=== PATIENT | female | born 1945 | race Caucasian/White ===

== ENCOUNTER → 2019-07-24 14:04 | Outpatient (CLI) | payer MEDICARE, OTHER, SELFPAY ==
--- NOTE | 2019-07-24 | DI.RAD.S_ITS ---
PROCEDURE: XR CHEST 2V INDICATIONS: Asymptomatic menopausal Chest pain, unspecified TECHNIQUE: 2 views of the chest were acquired. COMPARISON: None. FINDINGS: Surgical changes and devices: None. Lungs and pleura: Lungs are clear. No pleural effusions or pneumothorax. Mediastinum: Mediastinal contours are normal. Heart size is normal. Bones and chest wall: No suspicious bony abnormalities. Soft tissues appear unremarkable. IMPRESSION: Normal for age, source of current chest pain symptoms is not seen. Dictated by: Sadi Shah M.D. on 07/24/2019 at 16:10 Approved by: Sadi Shah M.D. on 07/24/2019 at 16:10
--- NOTE | 2019-07-24 15:49 | PM.TREADMILL ---
Cardiac Stress Test Report Referral & Results Date Patient Seen: 07/24/19 Time Patient Seen: 15:50 Requesting provider: Jone Grider Indication: chest pain Rest ECG: sinus rhythm Procedure Note: Standard kaur protocol. Exercised 6:00, 6.1 METS. Max heart rate achieved 146 bpm. Good exercise capacity, ALEXA -13%; normal hemodynamic response to exercise; no chest pain or anginal symptoms. Resting ECG sinus rhythm with less than [address] depression in II, Avf, V4-V6. No ectopy Impression: Normal exercise nuclear stress test. Please note: Actual ECG tracings can be found in the PACS system.
--- NOTE | 2019-07-25 18:47 | DI.NM.S_ITS ---
DATE OF SERVICE: 07/24/2019 PROCEDURE: Exercise treadmill stress and rest myocardial perfusion imaging with gating to assess ejection fraction and regional wall motion. ORDERING PROVIDER: Dr. Jone Grider. INDICATIONS: The patient is a 74-year-old female with atypical chest discomfort. EXERCISE TREADMILL TESTING: The patient was able to exercise for a total of 5 minutes 58 seconds on a standard Long protocol suggesting very good exercise capacity with an ALEXA of -13%. She had a normal heart rate andblood pressure response, achieving a maximum heart rate of 146 bpm (101% of her predicted maximum). She had no chest discomfort. Her resting ECG is normal. She developed some subtle, nonspecific ST segment abnormalities at peak exercise that resolved promptly in recovery and are not indicative of ischemia. There were no arrhythmias seen. At 3 minutes 50 seconds of exercise at a heart rate of 132 bpm, 26.7 mCi of technetium-99m Myoview was injected and the patient was imaged 15 minutes later using a gated SPECT acquisition protocol. She returned the following day and was reinjected with an additional 25.5 mCi of technetium-99m Myoview and was imaged 30 minutes later, again, using a gated SPECT acquisition algorithm. FINDINGS: RAW DATA:: There is fairly good myocardial tracer uptake although there is some mild motion on the resting images. There is a mild breast attenuation artifact noted. Lung-heart ratio is normal at 0.38 with a normal TID ratio of 0.87. QUANTITATED GATED SPECT:: Post-stress ejection fraction is estimated at 86% without any focal wall motion abnormality. Resting ejection fraction is 82% with a resting end-diastolic volume of 67 mL. MYOCARDIAL PERFUSION IMAGING:: Post-stress supine images show a fairly normal myocardial perfusion pattern, supported by normal perfusion imaging in the prone position. The resting images show an identical perfusion pattern without any areas of improvement. CONCLUSION: 1. Normal myocardial perfusion study. 2. No evidence of myocardial ischemia or previous myocardial infarction. 3. Normal left ventricular systolic function without any regional wall motion abnormality. 4. Very good exercise capacity without angina or any concerning ECG abnormalities of ischemia. Lucrecia Hart - JUANITO/angela/glenna doc#: [id number]/job#: [id number] dd: 07/25/2019 16:37:00 dt: 07/25/2019 18:16:00 DICTATING MD/COPIES TO: Nate Willingham MD; Jone Grider M.D. COPIES MNE: ESSENCE;
== END ==
PROVIDERS: PCP Family Medicine; Visit Provider Family Medicine
DX: R07.89 Other chest pain (principal); M85.88 Other specified disorders of bone density and structure, other site; Z78.0 Asymptomatic menopausal state; Z90.722 Acquired absence of ovaries, bilateral; Z87.891 Personal history of nicotine dependence
CPT/HCPCS: 71046; 77080; 78452; 93017; A9502

== ENCOUNTER → 2019-11-14 13:20 | Outpatient (CLI) | payer MEDICARE, OTHER, SELFPAY ==
--- NOTE | 2019-11-14 | DI.MRI.S_ITS ---
PROCEDURE: MR HEAD/BRAIN WO/W CON INDICATIONS: PALATAL MYOCLONUS TECHNIQUE: Noncontrast axial T1 spin echo, axial T2 fast spin echo, sagittal and axial FLAIR, coronal T2 fast spin echo, axial gradient echo, axial diffusion and ADC through the brain. After the administration of contrast, axial and coronal T1 spin echo with fat saturation through the brain. COMPARISON: None. FINDINGS: Image quality: Excellent. CSF spaces: Basal cisterns are patent. No extra-axial fluid collections. Ventricles are normal in size and shape. Brain: No midline shift. No intracranial bleeds or masses. No abnormal intracranial enhancement. There is cerebral volume loss for age. There is periventricular white matter chronic small vessel ischemic change. The brainstem appears normal. Diffusion-weighted images demonstrate no acute ischemic insults. No chronic ischemic insults. Normal intravascular flow voids are present. Skull and face: Calvarial marrow is normal in signal. Orbits appear normal. Sinuses: Sinuses and mastoids appear clear. IMPRESSION: 1. No acute intracranial process. 2. Mild to moderate atrophy and chronic microvascular ischemic changes. Dictated by: Viola Roberson M.D. on 11/14/2019 at 15:19 Approved by: Viola Roberson M.D. on 11/14/2019 at 15:21
== END ==
PROVIDERS: PCP Family Medicine; Referring Provider Family Medicine; Visit Provider Family Medicine
DX: G25.3 Myoclonus (principal)
CPT/HCPCS: 70553; A9579

== ENCOUNTER 2020-11-15 02:08 | Emergency (ER) | payer MEDICARE, OTHER, SELFPAY ==
[2020-11-15] VITALS (15 sets, daily range): BP systolic 106–160; BP diastolic 56–74; PULSE 58–83; RESP 12–21; TEMP 36.4; O2SAT 96–100
--- NOTE | 2020-11-15 02:18 | DI.CT.S_ITS ---
PROCEDURE: CT HEAD/BRAIN WO CON INDICATIONS: concern for stroke, last known normal 10pm TECHNIQUE: Noncontrast 4.5 mm thick angled axial sections acquired from the foramen magnum to the vertex, with coronal and sagittal reformats. For radiation dose reduction, the following was used: automated exposure control, adjustment of mA and/or kV according to patient size. COMPARISON: [facility], MR, MR HEAD/BRAIN WO/W CON, 11/14/2019, 14:07. FINDINGS: Image quality: Excellent. CSF spaces: Basal cisterns are patent. No extra-axial fluid collections. The ventricles are symmetric in size and shape. Brain: No intracranial bleeds or masses. There is cerebral volume loss for age, with resultant ventricular and sulcal prominence. There are periventricular and deep white matter chronic small vessel ischemic changes. There is intracranial internal carotid artery atherosclerosis. Skull and face: Calvarium and visualized facial bones appear intact, without suspicious lesions. Sinuses: Visualized sinuses and mastoids are clear. IMPRESSION: No acute intracranial disease process. Dictated by: Ailyn Gaitan MD, PhD on 11/15/2020 at 7:07 Approved by: Ailyn Gaitan MD, PhD on 11/15/2020 at 7:08
--- NOTE | 2020-11-15 02:23 | ED_ITS ---
HPI - General Adult General Chief complaint: Neuro Symptoms/Deficit Stated complaint: woke up disoriented/couldnt stand/slurred speech Time Seen by Provider: 11/15/20 02:10 History of Present Illness HPI narrative: 75-year-old woman with a history of hypothyroidism went to bed around 10:00 a.m. last night with her noted she was in her normal state of good health. She woke up at 1:30 a.m. seemingly to get up to void and her reports that she was incoherent, could not stand had slurred speech and was emotionally distraught which is extraordinarily unusual for her. He notes that she has not had any recent illness, fevers, cough, complaints of abdominal or chest pain. No recent trauma. Patient had had recent neurology appointments with discussion of MS as well as parkinson's disease as possible diagnoses Related Data Previous Rx's Medication Instructions Recorded nystatin 1 lea TOPICAL BID #15 gm 06/18/16 omeprazole 20 mg PO BID #60 cap 06/18/16 Allergies Allergy/AdvReac Type Severity Reaction Status Date / Time codeine [CODEINE] Allergy Mild stomach Unverified 10/13/17 12:28 upset iodine [IODINE] Allergy Mild hives Unverified 10/13/17 12:28 Review of Systems Review of Systems Narrative: Remainder of complete review of systems is otherwise unremarkable except for that included in the HPI. Patient History Medical History Hypothyroidism (acquired) Osteoarthritis Social History Smoking Status: Never smoker Exam Narrative Exam Narrative: General: Distraught older woman unable to form full sentences with slurred speech. HEENT: Moist mucous membranes, normal sclera with reactive pupils, Neck: No JVD, supple Respiratory: Lungs are clear to auscultation, no wheezing no rales no rhonchi. Full and symmetrical air movement Cardiac: Regular rate and rhythm no murmurs no bruits Abdomen: Soft, nontender, good bowel tones, no flank pain Skin: Warm and dry, no rashes Neurologic: Globally weak, she is able to squeeze both hands but has some difficulty comprehending the instructions to do so, is not responding to direct questions, the words that she is able to speak are slurred. Face is flat with out obvious asymmetric droop. Extremities: No trauma, well perfused Psych: Affect alternating between flat and incredibly labile Initial Vital Signs Initial Vital Signs: Vital Signs Blood Pressure 160/74 H 11/15/20 02:17 Course Orders Ordered: ED Orders 11/15/20 02:18 CT head/brain wo con Stat 11/15/20 02:25 Complete Blood Count AUTO DIFF Stat Comprehensive Metabolic Panel Stat Lactate (Lactic Acid) Stat Magnesium Stat Troponin I Stat Discontinued Medications Sodium Chloride (Normal Saline 0.9%) 1,000 mls @ 1,000 mls/hr IV BOLUS ONE Stop: 11/15/20 04:32 Last Infusion: 11/15/20 05:02 Dose: 0 mls/hr Documented by: Admin: 11/15/20 03:35 Dose: 1,000 mls/hr Documented by: RONNELL Ondansetron HCl (Ondansetron 4 Mg/2 Ml Inj) 4 mg IV NOW ONE Stop: 11/15/20 02:34 Last Admin: 11/15/20 02:38 Dose: 4 mg Documented by: HARESH Vital Signs Vital signs: Vital Signs - 8 hr 11/15/20 02:17 11/15/20 02:22 11/15/20 02:27 Temperature 97.6 F Pulse Rate 83 80 Respiratory Rate 14 21 Blood Pressure 160/74 H 160/74 H Pulse Oximetry 99 99 11/15/20 02:30 11/15/20 02:31 11/15/20 03:00 Temperature Pulse Rate 59 L 58 L 59 L Respiratory Rate 19 19 Blood Pressure 148/70 H 134/63 Pulse Oximetry 100 100 100 Medical Decision Making Medical Records Medical records reviewed: Yes I reviewed the patient's medical records. Lab Data Lab results reviewed: Yes I reviewed the patient's lab results. Result diagrams: 11/15/20 02:25 11/15/20 02:25 Labs: Lab Results 11/15/20 11/15/20 11/15/20 Range/Units 02:25 02:25 02:25 WBC 6.9 (4.5-11.0) X10^3/uL RBC 4.64 (4.0-5.2) X10^6/uL Hgb 14.0 (12.0-16.0) g/dL Hct 42.4 (36-46) % MCV 91.4 (80-100) fL MCH 30.2 (26-34) PG MCHC 33.1 (30-36) % RDW 14.7 (11.6-14.8) % Plt Count 229 (150-400) X10^3/uL Neut % (Auto) 44.2 L (50-75) % Lymph % (Auto) 43.9 H (25-40) % [place] % (Auto) 6.0 (3-14) % Eos % (Auto) 4.6 H (2-4) % Baso % (Auto) 1.3 (0-2) % Neut # (Auto) 3000 (1114-7539) /uL Lymph # (Auto) 3000 (1947-3128) /uL [place] # (Auto) 400 (0-900) /uL Eos # (Auto) 300 (0-450) /uL Baso # (Auto) 100 (0-100) /uL Sodium 142 (137-145) mmol/L Potassium 3.7 (3.4-5.1) mmol/L Chloride 107 (98-107) mmol/L Carbon Dioxide 22 (22-32) mmol/L BUN 24 H (7-17) mg/dL Creatinine 0.82 (0.52-1.04) mg/dL Estimated GFR > 60.0 (>60) mL/min BUN/Creatinine Ratio 29.3 H (6-22) Glucose 105 (80-110) mg/dL Lactate 2.3 H (0.7-2.1) mmol/L Calcium 9.6 (8.4-10.2) mg/dL Magnesium 2.2 (1.6-2.3) mg/dL Total Bilirubin 0.2 (0.2-1.3) mg/dL AST 25 (14-36) IU/L ALT 15 (<35) IU/L Alkaline Phosphatase 54 (38-126) U/L Troponin I < 0.012 (0.01-0.034) ng/mL Total Protein 7.1 (6.3-8.2) g/dL Albumin 4.3 (3.5-5.0) g/dL Globulin 2.8 (1.7-4.1) g/dL Albumin/Globulin Ratio 1.5 (1.0-2.8) 05/14/21 Range/Units 04:35 WBC (4.5-11.0) X10^3/uL RBC (4.0-5.2) X10^6/uL Hgb (12.0-16.0) g/dL Hct (36-46) % MCV (80-100) fL MCH (26-34) PG MCHC (30-36) % RDW (11.6-14.8) % Plt Count (150-400) X10^3/uL Neut % (Auto) (50-75) % Lymph % (Auto) (25-40) % [place] % (Auto) (3-14) % Eos % (Auto) (2-4) % Baso % (Auto) (0-2) % Neut # (Auto) (8601-8544) /uL Lymph # (Auto) (4505-9425) /uL [place] # (Auto) (0-900) /uL Eos # (Auto) (0-450) /uL Baso # (Auto) (0-100) /uL Sodium (137-145) mmol/L Potassium (3.4-5.1) mmol/L Chloride (98-107) mmol/L Carbon Dioxide (22-32) mmol/L BUN (7-17) mg/dL Creatinine (0.52-1.04) mg/dL Estimated GFR (>60) mL/min BUN/Creatinine Ratio (6-22) Glucose (80-110) mg/dL Lactate 2.1 (0.7-2.1) mmol/L Calcium (8.4-10.2) mg/dL Magnesium (1.6-2.3) mg/dL Total Bilirubin (0.2-1.3) mg/dL AST (14-36) IU/L ALT (<35) IU/L Alkaline Phosphatase (38-126) U/L Troponin I (0.01-0.034) ng/mL Total Protein (6.3-8.2) g/dL Albumin (3.5-5.0) g/dL Globulin (1.7-4.1) g/dL Albumin/Globulin Ratio (1.0-2.8) Imaging Data CT scan - head: Radiologist's Impression: No acute intracranial findings. Periventricular and deep white matter gliosis likely secondary to chronic microangiopathic disease Shabbir Richey MD [facility] Narrative Medical decision making narrative: 75-year-old woman presents with acutely altered mental status when waking up in the middle of the night. No evidence of intracranial hemorrhage, hypoglycemia, infection, acute coronary syndrome. She had rather abrupt resolution of symptoms and on re-evaluation is entirely back to her baseline. With her global symptoms rather than any specific localizing neurologic findings I do not suspect stroke. She did not have any reported seizure activity to suspect this as a postictal period. Findings are reviewed with patient and her . They currently live on [address] and will opt to spend the night in [place]. Findings concerns and diagnoses that she does not have are reviewed in detail with patient and her . At this point she is safe for home discharge. Will ask her to follow- up with her primary care physician Discharge Plan Departure Patient Disposition: Home Clinical Impression: Acute alteration in mental status Instructions: DI for Altered Mental Status Activity Restrictions/Additional Instructions: Thank you for coming in last night. You had a brief and self limited episode of acutely altered mental status. There is no sign of stroke, heart attack, infection or tumors or masses in your brain. I do not have a full explanation for your symptoms however they have seemingly completely resolved at this time. Please continue to pay attention to your symptoms over the next couple of days and schedule follow-up appointment with your primary care physician. If things worsen, please return to the emergency department. Prescriptions: No Action nystatin 15 GM cream 1 lea Topical BID Qty: 15 RF: 1 omeprazole 20 MG capsule,delayed release(DR/EC) 20 mg PO BID Qty: 60 RF: 0 Referrals: Jone Grider MD [Primary Care Provider] -
[2020-11-15 02:35] LABS: Add Manual Diff / Slide Review NO; Basophils Absolute Auto 100 /uL (0-100); Basophils Percent Auto 1.3 % (0-2); Eosinophils Absolute Auto 300 /uL (0-450); Eosinophils Percent Auto 4.6 % (2-4); Hematocrit 42.4 % (36-46); Lymphocytes Absolute Auto 3000 /uL (1100-4500); Lymphocytes Percent Auto 43.9 % (25-40); Mean Corpuscular HGB Conc 33.1 % (30-36); Mean Corpuscular Hemoglobin 30.2 PG (26-34); Mean Corpuscular Volume 91.4 fL (80-100); Monocytes Absolute Auto 400 /uL (0-900); Neutrophils Absolute Auto 3000 /uL (1500-7000); Neutrophils Percent Auto 44.2 % (50-75); Platelet Count 229 X10^3/uL (150-400); Red Blood Cell Count 4.64 X10^6/uL (4.0-5.2); Red Cell Distribution Width 14.7 % (11.6-14.8); White Blood Cell Count 6.9 X10^3/uL (4.5-11.0)
[2020-11-15] MEDS: ONDANSETRON 4 MG/2 ML INJ IV (02:38)
[2020-11-15 02:43] LABS: Alanine Aminotransferase 15 IU/L (<35); Albumin 4.3 g/dL (3.5-5.0); Albumin Globulin Ratio 1.5 (1.0-2.8); Alkaline Phosphatase 54 U/L (38-126); Aspartate Aminotransferase 25 IU/L (14-36); BUN Creatinine Ratio 29.3 (6-22); Bilirubin Total 0.2 mg/dL (0.2-1.3); Blood Urea Nitrogen 24 mg/dL (7-17); Calcium 9.6 mg/dL (8.4-10.2); Carbon Dioxide 22 mmol/L (22-32); Chloride 107 mmol/L (98-107); Estimated Glomerular Filt Rate > 60.0 mL/min (>60); Globulin 2.8 g/dL (1.7-4.1); Glucose 105 mg/dL (80-110); HEMOLYSIS < 15 (0-50); Lactate (Lactic Acid) 2.3 mmol/L (0.7-2.1); Magnesium 2.2 mg/dL (1.6-2.3); Potassium 3.7 mmol/L (3.4-5.1); Sodium 142 mmol/L (137-145); Total Protein 7.1 g/dL (6.3-8.2)
[2020-11-15 02:54] LABS: Troponin I < 0.012 ng/mL (0.01-0.034)
[2020-11-15] MEDS: SODIUM CHLORIDE 0.9% 1,000 ML 1000 ML IV (03:35)
[2020-11-15 04:28] LABS: Reflexed Lactate in 2 Hours Y
[2020-11-15 04:54] LABS: Lactate 2HR (Lactic Acid Rflx) 2.1 mmol/L (0.7-2.1)
--- NOTE | 2020-11-15 05:04 | PC.NURSE ---
Pt now alert and oriented. Doesn't remember episode which brought her to the ER. Pt able to speak clearly and in full sentences.
== END 2020-11-15 06:46 | disposition home or self-care (01) ==
PROVIDERS: Emergency Provider Emergency Medicine; PCP Family Medicine
DX: R41.82 Altered mental status, unspecified (principal)
CPT/HCPCS: 36415; 70450; 80053; 83605; 83735; 84484; 85025; 96361; 96374; 99284; J2405

== ENCOUNTER 2023-11-23 15:30 | Emergency (ER) | payer MEDICARE, OTHER, SELFPAY ==
[2023-11-23 15:34] VITALS: BP 185/84; PULSE 89; RESP 16; TEMP 36.7; O2SAT 100; BMI 32.8
--- NOTE | 2023-11-23 16:17 | DI.RAD.S_ITS ---
PROCEDURE: XR CHEST 2V INDICATIONS: ?aspiration TECHNIQUE: 2 views of the chest were acquired. COMPARISON: [facility], CR, XR CHEST 2V, 07/24/2019, 14:40. FINDINGS: Surgical changes and devices: None. Lungs and pleura: Lungs are clear. No pleural effusions or pneumothorax. Mediastinum: Mediastinal contours are normal. Heart size is normal. Bones and chest wall: No suspicious bony abnormalities. Soft tissues appear unremarkable. IMPRESSION: No acute cardiopulmonary abnormality is seen. Dictated by: Michael Gutiérrez M.D. on 11/23/2023 at 17:18 Approved by: Michael Gutiérrez M.D. on 11/23/2023 at 17:19
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
--- NOTE | 2023-11-23 16:57 | PC.NURSE ---
undressed pt for physical exam. no bruising seen any where on body. large scar on left knee from previous surgery. pt states this scarred area hurts and she needs to go see her doctor about it.
[2023-11-23 17:04] LABS: Add Manual Diff / Slide Review NO; Basophils Absolute Auto 100 /uL (0-100); Basophils Percent Auto 1.1 % (0-2); Eosinophils Absolute Auto 200 /uL (0-450); Eosinophils Percent Auto 4.5 % (2-4); Hematocrit 41.9 % (36-46); Hemoglobin 13.9 g/dL (12.0-16.0); Lymphocytes Absolute Auto 1800 /uL (1100-4500); Lymphocytes Percent Auto 31.7 % (25-40); Mean Corpuscular HGB Conc 33.1 % (30-36); Mean Corpuscular Hemoglobin 29.2 PG (26-34); Mean Corpuscular Volume 88.2 fL (80-100); Monocytes Absolute Auto 300 /uL (0-900); Monocytes Percent Auto 6.2 % (3-14); Neutrophils Absolute Auto 3100 /uL (1500-7000); Neutrophils Percent Auto 56.5 % (50-75); Platelet Count 218 X10^3/uL (150-400); Red Blood Cell Count 4.75 X10^6/uL (4.0-5.2); Red Cell Distribution Width 13.9 % (11.6-14.8); White Blood Cell Count 5.6 X10^3/uL (4.5-11.0)
[2023-11-23 17:24] LABS: Alanine Aminotransferase 10 IU/L (<35); Albumin Globulin Ratio 1.3 (1.0-2.8); Alkaline Phosphatase 110 U/L (38-126); Aspartate Aminotransferase 20 IU/L (14-36); BUN Creatinine Ratio 26.7 (6-22); Bilirubin Total 0.5 mg/dL (0.2-1.3); Blood Urea Nitrogen 23 mg/dL (7-17); Calcium 8.7 mg/dL (8.4-10.2); Carbon Dioxide 30 mmol/L (22-32); Chloride 105 mmol/L (98-107); Estimated Glomerular Filt Rate > 60 mL/min (>60); Glucose 114 mg/dL (80-110); HEMOLYSIS < 15 (0-50); Lipase 62 U/L (23-300); Potassium 3.9 mmol/L (3.4-5.1); Sodium 138 mmol/L (137-145)
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
[2023-11-23] MEDS: ALPRAZolam 0.25 MG TABLET PO (18:13)
[2023-11-23 18:16] VITALS: BP 178/82; PULSE 77; RESP 17; O2SAT 100
== END 2023-11-23 18:57 | disposition home or self-care (01) ==
PROVIDERS: Emergency Provider Student in an Organized Health Care Education/Training Program; PCP Student in an Organized Health Care Education/Training Program
DX: F03.911 Unspecified dementia, unspecified severity, with agitation (principal)
CPT/HCPCS: 71046; 80053; 81003; 83690; 85025; 99283; 99284

== ENCOUNTER 2024-11-20 17:18 | Emergency (ER) | payer MEDICARE, OTHER, SELFPAY ==
[2024-11-20 17:57] VITALS: BP 171/79; PULSE 91; RESP 18; TEMP 37.1; O2SAT 98
== END 2024-11-20 18:56 | disposition left against medical advice (07) ==
PROVIDERS: Emergency Provider Emergency Medicine; PCP Family Medicine
CPT/HCPCS: 99281